=== PATIENT | female | born 1945 | race Hispanic/Latino ===

== ENCOUNTER 2016-07-08 14:47 | Outpatient (CLI) | payer MEDICARE, OTHER ==
--- NOTE | 2016-07-08 15:38 | XRay Report ---
Right rib series: Right mastectomy and right rib pain. Adenectomy clips are identified in the right axilla. Right breast is absent. There is an ill-defined 2.8 cm mass in the periphery of the right upper lung. There is some question concerning some lucencies in the adjacent anterior third rib. The rib series is otherwise unremarkable. Impressions: Right upper lobe mass. Questionable adjacent third rib findings.
== END 2016-07-08 14:48 | disposition home or self-care (01) ==
LOC: SPVIMAG 14:47
PROVIDERS: ATTEND Internal Medicine Hematology & Oncology
DX: M25.551 Pain in right hip (principal); R07.81 Pleurodynia

== ENCOUNTER 2016-07-14 11:10 | Outpatient (CLI) | payer MEDICARE, OTHER ==
--- NOTE | 2016-07-17 13:08 | PET Report ---
PET/CT:07/14/16 11:10:00 CLINICAL: Breast cancer restaging. RADIOPHARMACEUTICAL: 13.5mCi F18-FDG. COMPARISON: 03/30/10 PET/CT TECHNIQUE- Following intravenous injection of F-18 FDG and an approximately 60 minute uptake period, CT and PET images from the mid skull to the upper thighs were acquired with the patient in the fasted state. No contrast was administered. The CT protocol used for this PET CT study is designed for attenuation correction and anatomic localization of PET abnormalities. This registered art therapist CT is not desired to produce and cannot replace, ytvjr-rz-[id number]-art diagnostic CT scans with specific imaging protocols for different body parts and indications. Plasma glucose at the time of this test: 184g/dl. The standardized uptake values (SUV) are normalized to patient body weight and indicate the highest activity concentration (SUV max) in a given disease site. FINDINGS: Brain--Physiologic FDG uptake in the visualized regions of the brain. Neck--Physiologic FDG uptake . Chest--Physiologic FDG uptake in mediastinal blood pool and myocardium. Lungs/pleura--A new FDG avid pleural-based right upper lobe spiculated mass measures 3.0 cm craniocaudal dimension by 2.9 cm in AP dimension by 1.6 cm transverse dimension with SUV 6.7. The mass is lateral and deep to the right third rib. Moderate emphysema and no other lung or pleural based mass. Pericardium--No abnormal uptake. Thoracic nodes--No abnormal uptake. Several small AP window and paratracheal lymph nodes with no FDG uptake are stable. No suspicious lymph nodes. Hepatobiliary--No abnormal uptake. Liver background SUV mean, as a reference for comparing FDG studies, is 3.7 compared to 3.4 on the last exam. No liver mass. Spleen--No abnormal uptake. Pancreas--No abnormal uptake. Adrenal Glands--No abnormal uptake. The previously described benign right adrenal adenoma is slightly larger and measures 2.6 cm compared to 2.0 cm with FDG uptake equal to background. It measures 10.0 Hounsfield units in predominant density and has developed a few calcifications. Kidneys/Ureters/Bladder--No abnormal uptake. Abdominopelvic Nodes--No abnormal uptake. Bowel/Peritoneum/Mesentery--No abnormal uptake. Physiologic uptake in the right colon. Pelvic organs--No abnormal uptake. Bones/Soft Tissues--No abnormal uptake. Other findings: Status post right mastectomy and right axillary node dissection. A moderately enlarged fibroid uterus is not significantly changed in size. IMPRESSION-1. An FDG avid 3 cm right upper lobe pleural-based mass at the right third rib is suspicious for either metastasis or a second primary. No apparent rib involvement. 2. No other suspicious findings. 3. Moderate emphysema. 4. Slightly larger benign right adrenal adenoma. 5. Stable enlarged fibroid uterus.
== END 2016-07-14 11:11 | disposition home or self-care (01) ==
LOC: PET 11:10
PROVIDERS: ATTEND Internal Medicine Hematology & Oncology
DX: C50.911 Malignant neoplasm of unspecified site of right female breast (principal); R91.8 Other nonspecific abnormal finding of lung field; J43.9 Emphysema, unspecified; D35.01 Benign neoplasm of right adrenal gland; E27.8 Other specified disorders of adrenal gland; D25.9 Leiomyoma of uterus, unspecified; N85.2 Hypertrophy of uterus; Z90.11 Acquired absence of right breast and nipple
CPT/HCPCS: 78815; 82962; A9552

== ENCOUNTER 2016-08-02 08:31 | Day surgery (SDC) | payer MEDICARE, OTHER ==
[2016-08-02 09:21] LABS: Basophils % (Auto) 0.5 % (0.0-1.8); Eosinophils % (Auto) 2.5 % (0.0-4.3); Hematocrit 40.6 % (30.3-42.9); Hemoglobin 13.5 gm/dl (10.1-14.3); Mean Corpuscular HGB Conc 33 % (30-34); Mean Corpuscular Hemoglobin 28 pg (28-32); Mean Corpuscular Volume 84 fl (79-97); Platelet Count 208 K/mm3 (140-440); Red Blood Count 4.82 M/mm3 (3.65-5.03); Red Cell Distribution Width 13.5 % (13.2-15.2)
[2016-08-02] MEDS ORDERED: VERSED IV ONE (10:11)
[2016-08-02] MEDS ORDERED: SUBLIMAZE IV ONE (10:11)
[2016-08-02 10:30] LABS: INR 0.99 (0.87-1.13)
[2016-08-02 10:31] LABS: Partial Thromboplastin Time 26.8 Sec. (24.2-36.6)
[2016-08-02] MEDS ORDERED: BENADRYL ONE (12:43)
[2016-08-02] MEDS ORDERED: BENADRYL IV ONE (13:55)
[2016-08-02 15:54] VITALS: BP 182/93
--- NOTE | 2016-08-02 15:58 | XRay Report ---
AP chest History: Right lung mass, recent CT-guided biopsy. Findings: Recent CT-guided biopsy of a 2 x 3 cm right upper lobe mass was performed. There is no evidence for pneumothorax. Emphysematous changes are noted. The lungs are grossly clear. Heart size is at the upper limits of normal. Impression: No evidence for pneumothorax.
--- NOTE | 2016-08-02 16:02 | Cat Scan Report ---
CT BIOPSY LUNG RIGHT HISTORY: Breast cancer, right upper lobe mass. DESCRIPTION OF PROCEDURE: Informed consent was obtained. Sterile technique was utilized. Conscious sedation was accomplished with Versed and fentanyl. The patient was sedated for 20 minutes. Intra-observer time of 20 minutes. Independent cardiorespiratory monitoring by origin. Using CT guidance, a 2 x 3 cm pleural-based mass in the lateral right upper lobe was biopsied. Three 20-gauge core biopsies were obtained. Follow up scan demonstrates no evidence for pneumothorax. The patient tolerated the procedure without difficulty. IMPRESSION: Successful CT-guided biopsy of the right upper lobe mass.
== END 2016-08-02 16:15 | disposition home or self-care (01) ==
LOC: OPU 08:31
PROVIDERS: ATTEND Specialist
DX: C50.919 Malignant neoplasm of unspecified site of unspecified female breast (principal); C34.11 Malignant neoplasm of upper lobe, right bronchus or lung; Z79.899 Other long term (current) drug therapy; Z79.01 Long term (current) use of anticoagulants
CPT/HCPCS: 32405; 36415; 77012; 82962; 85025; 85610; 85730; 88305; 88333; 88341; 88342; J1200; J2250; J3010; 88173

== ENCOUNTER 2017-01-19 14:15 | Outpatient (CLI) | payer MEDICARE, OTHER ==
--- NOTE | 2017-01-21 12:23 | PET Report ---
PET/CT:01/19/17 14:15:00 CLINICAL: Lung cancer staging. Status post CT right lung biopsy 08/02/16 with pathologic result of squamous cell carcinoma. She completed radiation therapy on 10/06/16. She also has a history of breast cancer status post right mastectomy. RADIOPHARMACEUTICAL: 10.87mCi F18-FDG. COMPARISON: 07/14/16 PET/CT TECHNIQUE- Following intravenous injection of F-18 FDG and an approximately 60 minute uptake period, CT and PET images from the mid skull to the upper thighs were acquired with the patient in the fasted state. No contrast was administered. The CT protocol used for this PET CT study is designed for attenuation correction and anatomic localization of PET abnormalities. This network admin CT is not desired to produce and cannot replace, gjele-uy-prd-art diagnostic CT scans with specific imaging protocols for different body parts and indications. Plasma glucose at the time of this test: 144g/dl. The standardized uptake values (SUV) are normalized to patient body weight and indicate the highest activity concentration (SUV max) in a given disease site. FINDINGS: Brain--Physiologic FDG uptake in the visualized regions of the brain. Neck--Physiologic FDG uptake . Chest--Physiologic FDG uptake in mediastinal blood pool and myocardium. Lungs/Pleura--Non--FDG avid focal pleural thickening and scar at the site of the previously described right upper lobe pleural-based mass. The pleura measures approximately 7 mm thick. Stable moderate emphysema and no other lung nodule or mass. Pericardium--No abnormal uptake. Thoracic nodes--No abnormal uptake. Hepatobiliary--No abnormal uptake. Liver background SUV mean, as a reference for comparing FDG studies, is 3.4 compared to 3.1 on the last exam. No liver mass. Spleen--No abnormal uptake. Pancreas--No abnormal uptake. Adrenal Glands--No abnormal uptake. Stable 2.6 cm right adrenal adenoma. Kidneys/Ureters/Bladder--No abnormal uptake. Abdominopelvic Nodes--No abnormal uptake. Bowel/Peritoneum/Mesentery--No abnormal uptake. Pelvic organs--No abnormal uptake. Bones/Soft Tissues--No abnormal uptake. No suspicious bone lesion. Other findings: Status post right mastectomy and right axillary node dissection. Stable enlarged fibroid uterus. IMPRESSION- 1. Complete response to radiation therapy. 2. No evidence of metastasis. 3. Status post right mastectomy and right axillary node dissection. 4. Stable benign right adrenal adenoma.
== END 2017-01-19 14:16 | disposition home or self-care (01) ==
LOC: PET 14:15
PROVIDERS: ATTEND Radiology Radiation Oncology
DX: C34.11 Malignant neoplasm of upper lobe, right bronchus or lung (principal); D35.01 Benign neoplasm of right adrenal gland; D25.9 Leiomyoma of uterus, unspecified; J43.9 Emphysema, unspecified; E11.9 Type 2 diabetes mellitus without complications; Z85.3 Personal history of malignant neoplasm of breast; Z90.11 Acquired absence of right breast and nipple; Z79.899 Other long term (current) drug therapy
CPT/HCPCS: 78815; 82962; A9552

== ENCOUNTER 2017-07-27 12:23 | Outpatient (CLI) | payer MEDICARE, OTHER ==
--- NOTE | 2017-07-31 08:35 | PET Report ---
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 TECHNIQUE: 16.0 millicuries F-18 FDG was administered intravenously. Noncontrast CT images and PET images were obtained from the skull base to the proximal thighs. Fused images were reviewed on a workstation. The patient's blood glucose level measured 143. COMPARISON: 01/19/17. FINDINGS: BRAIN: physiologic FDG uptake in the imaged brain. NECK: physiologic FDG uptake. MEDIASTINUM: physiologic FDG uptake. A few scattered mediastinal lymph nodes are stable in size and number the largest lymph node is in the precarinal chain measuring 2.2 x 1.3 cm. LUNGS: Physiologic FDG uptake. Moderate emphysematous changes are stable. No recurrent pulmonary nodule or mass. There is mild smooth right pleural thickening lateral to the right upper lobe which is unchanged and presumably related to surgery or radiation. Max SUV in this area measures 2.3. PLEURA/PERICARDIUM: physiologic FDG uptake. THORACIC LYMPH NODES: physiologic FDG uptake. HEPATOBILIARY: physiologic FDG uptake. Mean liver SUV measures 3.3 which has decreased from 3.7 on the previous exam. PANCREAS: physiologic FDG uptake. SPLEEN: physiologic FDG uptake. ADRENAL GLANDS: 2.7 x 2.2 cm right adrenal mass is unchanged and demonstrates a max SUV of 2.5 which has decreased from 3.0 on the previous study. The left adrenal gland remains normal. KIDNEYS/RENAL COLLECTING SYSTEMS: physiologic FDG uptake. BOWEL/MESENTERY: physiologic FDG uptake. PELVIC VISCERA: physiologic FDG uptake. Moderate uterine fibroid disease is stable. The adnexa remain unremarkable. ABDOMINAL/PELVIC LYMPH NODES: physiologic FDG uptake. MUSCULOSKELETAL: physiologic FDG uptake. No suspicious bony lesions have developed. There are moderate degenerative changes throughout the spine and right hip. Stable right mastectomy changes and right axillary lymph node dissection changes. IMPRESSION: Stable findings since 01/19/17. No evidence for disease recurrence or metastasis. Essentially negative PET CT.
== END 2017-07-27 12:24 | disposition home or self-care (01) ==
LOC: PET 12:23
PROVIDERS: ATTEND Internal Medicine Hematology & Oncology
DX: C34.91 Malignant neoplasm of unspecified part of right bronchus or lung (principal); C50.911 Malignant neoplasm of unspecified site of right female breast; I48.91 Unspecified atrial fibrillation; E27.9 Disorder of adrenal gland, unspecified; D25.9 Leiomyoma of uterus, unspecified; M16.11 Unilateral primary osteoarthritis, right hip; M47.899 Other spondylosis, site unspecified; Z90.11 Acquired absence of right breast and nipple; Z87.891 Personal history of nicotine dependence; Z79.899 Other long term (current) drug therapy
CPT/HCPCS: 78815; 82962; A9552